=== PATIENT | male | born 1985 | race Caucasian/White ===

== ENCOUNTER 2017-12-14 17:29 | Inpatient (IN) | payer SELFPAY ==
[2017-12-14 17:46] VITALS: BP 146/71; PULSE 90; TEMP 97.8; BMI 25.0
[2017-12-14] MEDS ORDERED: ALBUTEROL SO4 2.5/IPRATROPIUM 0.5 INH SOL 3 ML VIAL.NEB. NEB ONE ×2 (18:32→19:20)
--- NOTE | 2017-12-14 18:32 | PDOC ---
History of Present Illness - General Chief Complaint: Wound Stated Complaint: ABSCESS BOIL Time Seen by Provider: 12/14/17 17:57 History Source: Patient Exam Limitations: No Limitations - History of Present Illness Initial Comments: 12/14/17 18:28 32 yo male h/o ivda, asthma, long time smoker here with abscess in left antecub near injeciton site. pt states he has had redness and swelling for several days. denies fever or chills. also c/o itching diffusely. states he was treated for scabies and lice recently, but feels like it didn't work. no f/c no other complaints. Past History - Past Medical History Allergies/Adverse Reactions: Allergies Allergy/AdvReac Type Severity Reaction Status Date / Time No Known Allergies Allergy Verified 12/14/17 17:56 Home Medications: Ambulatory Orders NK [No Known Home Medication] 12/14/17 COPD: No - Surgical History Appendectomy: Yes - Suicide/Smoking/Psychosocial Hx Smoking History: Current every day smoker Have you smoked in the past 12 months: Yes Information on smoking cessation initiated: No Drug/Substance Use Hx: Yes (IV heroin and occ cocaine) Substance Use Type: Cocaine, Heroin Review of Systems - Review of Systems Constitutional: No: Chills, Diaphoresis, Fever HEENTM: No: Eye Pain Respiratory: No: Cough, Orthopnea Cardiac (ROS): No: Chest Pain ABD/GI: No: Abdominal Distended : No: Burning, Dysuria, Discharge Integumentary: Yes: Erythema, Lesions, Rash. No: Bruising, Change in Color All Other Systems: Reviewed and Negative *Physical Exam - Vital Signs Last Vital Signs Temp Pulse Resp BP Pulse Ox 97.8 F 90 18 146/71 97 12/14/17 17:41 12/14/17 17:41 12/14/17 17:41 12/14/17 17:41 12/14/17 17:41 - Physical Exam Comments: 12/14/17 18:30 awake alert lungs with wheezing bilaterally heart rrr no mrg abd soft nt nd. ext wwp. left upper ext antecub with large 2 x 3 in indurated collection, min fluctuance. distally n/v intact. does have surrounding erythema. Procedures - Incision and Drainage I&D Site: Left: Arm Betadine cleansed: No Anesthesia: 1% Lidocaine Volume(ml): 3 Blade Size: 11 Plain Packing: No Complications: none Progress: 12/14/17 20:34 3 ml purulence pus expressed with blood tolerated well. ED Treatment Course - LABORATORY CBC & Chemistry Diagram: 12/14/17 19:00 12/14/17 19:00 Medical Decision Making - Medical Decision Making 12/14/17 18:30 differential absces. cellulitis. sepsis. plan iv abx, focused us to evalute if vascualr structure involved. pt require I &D. vanco zosyn. will retreat with premitherin cream for h/o scabies and lice. nicotine replacement cxr evalute for infection due to wheezing. 12/14/17 20:42 focused ED ultrasound , superficial indication: eval abscess linear transducer used abscess left antecub scanned in two planes. noted hypoechoic fluid collection measuring 1.6 x 2.4 cm no central vasculature impressions: left antecub abscess 1.6 x 2.4 cm I&D performed at bedside. expressed 3 ml pus and blood. tolereated well. dressing applied. case d/w admitting resident, will admit dr Steen. *DC/Admit/Observation/Transfer Diagnosis at time of Disposition: Abscess, Opiate abuse, continuous, Cellulitis - Discharge Dispostion Decision to Admit order: Yes - Referrals - Patient Instructions - Post Discharge Activity
[2017-12-14] MEDS ORDERED: VANCOMYCIN 1 GRAM (PRE-DOCKED) 1,000 MG/250 ML BAG IVPB ONE ×2 (18:33→19:20)
[2017-12-14] MEDS ORDERED: PIPERACILLIN/TAZOB 3.375 GM 3.375 GM in DEXTROSE 5%-WATER - 50 ML IVPB ONE (18:34)
[2017-12-14] MEDS ORDERED: PIPERACILLIN/TAZOB 3.375 GM 3.375 GM/50 ML BAG IVPB ONE (19:20)
[2017-12-14 19:27] LABS: BASO % 0.5 % (0-2.0); EOS % 0.6 % (0-4.5); HEMATOCRIT 38.5 % (35.4-49); HEMOGLOBIN 13.4 GM/dL (11.7-16.9); LYMPH % 16.2 % (8-40); MCH 27.3 pg (25.7-33.7); MCHC 34.7 g/dl (32.0-35.9); MEAN CELL VOLUME 78.7 fl (80-96); MONO % 8.4 % (3.8-10.2); NEUT % 74.3 % (42.8-82.8); PLATELET COUNT 225 K/MM3 (134-434); RBC 4.89 M/mm3 (4.00-5.60); RDW 13.1 % (11.9-15.9); WHITE BLOOD COUNT 11.2 K/mm3 (4.0-10.0)
[2017-12-14 19:28] LABS: VENOUS PC02 49.9 mmHg (38-52); VENOUS PH 7.38 (7.32-7.42)
[2017-12-14 19:40] LABS: INR 1.02 (0.83-1.09)
[2017-12-14 19:42] LABS: ACTIVATED PTT 33.6 SECONDS (25.2-36.5)
[2017-12-14 20:04] LABS: ALBUMIN 3.8 g/dl (3.4-5.0); ALK PHOS 86 U/L (45-117); ANION GAP 9 MMOL/L (8-16); BILIRUBIN,TOTAL 0.5 mg/dL (0.2-1); BLOOD UREA NITROGEN 18 mg/dL (7-18); CALCIUM 8.2 mg/dL (8.5-10.1); CHLORIDE 102 mmol/L (98-107); CO2 28 mmol/L (21-32); CREATININE 0.8 mg/dL (0.55-1.3); GLUCOSE,RANDOM 121 mg/dL (74-106); POTASSIUM 3.7 mmol/L (3.5-5.1); SGOT/AST 16 U/L (15-37); SGPT/ALT 18 U/L (13-61); SODIUM 140 mmol/L (136-145); TOT PROT 6.8 g/dl (6.4-8.2)
[2017-12-14 20:53] LABS: URINE APPEARANCE CLEAR; URINE BILIRUBIN NEGATIVE (<2.0 mg/dL); URINE COLOR YELLOW; URINE GLUCOSE (UA) NEGATIVE (NEGATIVE); URINE KETONE NEGATIVE (NEGATIVE); URINE LEUK ESTERASE NEGATIVE (NEGATIVE); URINE NITRITE NEGATIVE (NEGATIVE); URINE PROTEIN NEGATIVE (NEGATIVE); URINE UROBILINOGEN 4.0 E.U/dl mg/dL (0.2-1.0)
--- NOTE | 2017-12-14 21:32 | HP ---
CHIEF COMPLAINT: L Arm Abscess PCP: None HISTORY OF PRESENT ILLNESS: 32 y/o M with PMHx of Asthma and Polysubtance abuse (Injection Heroin, Cocaine) presents with L Arm Abscess. Patient says he has had multiple abscess in the past. Usually he asks around for antibiotics and "hopes it works." The abscess this time however continued to grow and was accompanied by Erythema and 7/10, Shooting pain down to his wrist and up to his mid-humerus. Denies any active diascharge. I interviewed the patient after the bedside I&D was performed. Patient endorses diarrhea and constipation however he says this is chronic as he has previously been diagnosed with IBS. Denies any accompanying fevers, chills, chest pain, SOB. Patient admits to injection use of Heroin and cocaine. His most recent use of heroin was approx. 1pm this past afternoon. He refuses to quantify the amount or how often he uses however he mentions having used for the >10 years. He says he only injects, and does not snort or smoke. Additionally he mentions the last time he encountered a physician was during his long-term stay in 2014. Finally, he mentions he has been in and out of shelters and has encountered a scabies and bed bug infestation. Patient became agitated, refused to answer anymore questions and requested to be interviewed later. ER course was notable for: (1) Bedside I&D (2) Christine Cabrera (3) Recent Travel: Denies PAST MEDICAL HISTORY: Asthma Polysubstance Abuse (Injection of Heroin, Cocaine) PAST SURGICAL HISTORY: R Wrist fracture repair Social History: Smokinppd x 20 years Alcohol: Denies Drugs: Heroin and cocaine Family History: Allergies No Known Allergies Allergy (Verified 12/14/17 17:56) HOME MEDICATIONS: Home Medications Medication Instructions Recorded NK [No Known Home Medication] 12/14/17 REVIEW OF SYSTEMS As per HPI PHYSICAL EXAMINATION Vital Signs - 24 hr 12/14/17 12/14/17 17:41 20:42 Temperature 97.8 F Pulse Rate 90 Respiratory 18 Rate Blood Pressure 146/71 O2 Sat by Pulse 97 97 Oximetry (%) GENERAL: A&Ox3, NAD however patient kept closing his eyes and becoming lethargic LUNGS: Breath sounds equal, clear to auscultation bilaterally. No wheezes. HEART: Regular rate and rhythm, normal S1 and S2 without murmur. ABDOMEN: Soft, nontender, not distended, normoactive bowel sounds, no guarding UPPER EXTREMITIES: Left Arm antecubital fossa wound site wrapped in fresh bandage. 2+ radial pulses. LOWER EXTREMITIES: No peripheral edema. SKIN: Warm, dry, with multiple healing, scabbed over lesions all extremities. Slightly erythematous rash over lower face and jaw without pustules. Laboratory Results - last 24 hr 12/14/17 12/14/17 12/14/17 19:00 19:00 19:00 WBC 11.2 H RBC 4.89 Hgb 13.4 Hct 38.5 MCV 78.7 L MCH 27.3 MCHC 34.7 RDW 13.1 Plt Count 225 MPV 9.0 Absolute Neuts (auto) 8.3 H Neutrophils % 74.3 Lymphocytes % 16.2 Monocytes % 8.4 Eosinophils % 0.6 Basophils % 0.5 Nucleated RBC % 0 PT with INR 12.00 INR 1.02 PTT (Actin FS) 33.6 VBG pH 7.38 POC VBG pCO2 49.9 POC VBG pO2 60.0 H Mixed VBG HCO3 28.9 H Sodium Potassium Chloride Carbon Dioxide Anion Gap BUN Creatinine Creat Clearance w eGFR Random Glucose Lactic Acid Calcium Total Bilirubin AST ALT Alkaline Phosphatase Total Protein Albumin Urine Color Urine Appearance Urine pH Ur Specific [place] Urine Protein Urine Glucose (UA) Urine Ketones Urine Blood Urine Nitrite Urine Bilirubin Urine Urobilinogen Ur Leukocyte Esterase 12/14/17 12/14/17 12/14/17 19:00 19:08 20:38 WBC RBC Hgb Hct MCV MCH MCHC RDW Plt Count MPV Absolute Neuts (auto) Neutrophils % Lymphocytes % Monocytes % Eosinophils % Basophils % Nucleated RBC % PT with INR INR PTT (Actin FS) VBG pH POC VBG pCO2 POC VBG pO2 Mixed VBG HCO3 Sodium 140 Potassium 3.7 Chloride 102 Carbon Dioxide 28 Anion Gap 9 BUN 18 Creatinine 0.8 Creat Clearance w eGFR > 60 Random Glucose 121 H Lactic Acid 1.2 Calcium 8.2 L Total Bilirubin 0.5 AST 16 ALT 18 Alkaline Phosphatase 86 Total Protein 6.8 Albumin 3.8 Urine Color Yellow Urine Appearance Clear Urine pH 6.0 Ur Specific [place] 1.029 Urine Protein Negative Urine Glucose (UA) Negative Urine Ketones Negative Urine Blood Negative Urine Nitrite Negative Urine Bilirubin Negative Urine Urobilinogen 4.0 e.u/dl Ur Leukocyte Esterase Negative ASSESSMENT/PLAN: 32 y/o M with PMHx of Asthma and Polysubtance abuse (Injection Heroin, Cocaine) presents with L Arm Abscess. #Left Arm Abscess -Likely due to IVDA -Bedside I&D preformed in ED -Started on IV Vanco, Zosyn (12/14) -Patient Left AMA before further evaluation or treatment could have been administered Visit type - Emergency Visit Emergency Visit: Yes Care time: The patient presented to the Emergency Department on the above date and was hospitalized for further evaluation of their emergent condition. - New Patient This patient is new to me today: Yes Date on this admission: 12/14/17 - Critical Care Critical Care patient: No
--- NOTE | 2017-12-15 01:59 | PN ---
Teaching Attending Note Name of Resident: Tamie Acharya ATTENDING PHYSICIAN STATEMENT I saw and evaluated the patient. I reviewed the resident's note and discussed the case with the resident. I agree with the resident's findings and plan as documented. SUBJECTIVE: OBJECTIVE: ASSESSMENT AND PLAN: patient AMA before i got to see and examine him
--- NOTE | 2017-12-16 15:33 | PDOC ---
Patient Follow-up (Call Back) - Post ED Follow - Up Condition at time of discharge: Unchanged/Unknown Disposition at time of original discharge: AGAINST MEDICAL ADVICE Reason for Call Back: Abnwl. Microbiology (MRSA wound) - Disposition Rx Needed: No (pt dc on clindamycin ) Additional Instructions/Notes: attempted to reach pt on the phone numbers given no voice mail no answer attempted to reach girlfriend Minna next of kin, no answer.
== END 2017-12-14 21:33 | disposition left against medical advice (07) | DRG 364 ==
LOC: JER 17:29 → JERBED 20:12
PROVIDERS: ADMIT Internal Medicine; ATTEND Internal Medicine
PROC: 0J9F0ZZ Drainage of Left Upper Arm Subcutaneous Tissue and Fascia, Open Approach (ICD-10-PCS; principal; 2017-12-14)
DX: L02.414 Cutaneous abscess of left upper limb (principal); F14.10 Cocaine abuse, uncomplicated; F11.10 Opioid abuse, uncomplicated; F17.210 Nicotine dependence, cigarettes, uncomplicated; J45.909 Unspecified asthma, uncomplicated
CPT/HCPCS: 36415; 71045-TC-FY; 80053; 81003; 82803; 83605; 85025; 85610; 85730; 87040; 87070; 87086; 87186; 87205; 99285-25

== ENCOUNTER 2018-07-27 13:22 | Emergency (ER) | payer OTHER | END 2018-07-27 14:56 | disposition left against medical advice (07) | LOC: JER 13:22 ==

== ENCOUNTER 2019-01-08 19:37 | Inpatient (IN) | payer OTHER ==
[2019-01-08 20:26] VITALS: BMI 30.4
--- NOTE | 2019-01-08 21:11 | HP ---
COWS - Scale Resting Pulse: 1= [place] 81-100 Sweatin=Flushed/Facial Moisture Restless Observation: 1= Difficult to Sit Still Pupil Size: 1= Pupils >than Normal Bone or Joint Aches: 4=Acute Joint/Muscle Pain Runny Nose/ Eye Tearin= Nasal Congestion GI Upset > 30mins: 1= Stomach Cramp Tremor Observation: 4= Gross Tremor/Twitching Yawning Observation: 0= None Anxiety or Irritability: 2=Irritable/Anxious Goose Flesh Skin: 3=Piloerection COWS Score: 20 CIWA Score Nausea/Vomitin Muscle Tremors: 4-Moderate,w/Arms Extend Anxiety: 4-Mod. Anxious/Guarded Agitation: 4-Moderately Restless Paroxysmal Sweats: 2 Orientation: 2-Disoriented Date<2 days Tacttile Disturbances: 0-None Auditory Disturbances: 0-None Visual Disturbances: 0-None Headache: 0-None Present CIWA-Ar Total Score: 19 - Admission Criteria [facility]ASAS Guidelines: Admission for Medically Managed Detox: Requires at least one of the followin. CIWA greater than 12 2. Seizures within the past 24 hours 3. Delirium tremens within the past 24 hours 4. Hallucinations within the past 24 hours 5. Acute intervention needed for co occurring medical disorder 6. Acute intervention needed for co occurring psychiatric disorder 7. Severe withdrawal that cannot be handled at a lower level of care (continued vomiting, continued diarrhea, abnormal vital signs) requiring intravenous medication and/or fluids 8. Admitting History and Physical - Smoking History Smoking history: Smoker current status UNK Have you smoked in the past 12 months: No - Alcohol/Substance Use Hx Alcohol Use: No Admission ROS [facility] Chief Complaint: Heroin and Xanax withdrawal symptoms Allergies/Adverse Reactions: Allergies Allergy/AdvReac Type Severity Reaction Status Date / Time No Known Allergies Allergy Verified 01/08/19 20:19 History of Present Illness: 33 years old male with a long history of heroin and Xanax dependence is seeking admission to detox. [facility]. He reports history of Asthma, hypertension, seizures and depression. He reports blackouts and denies suicidal ideation, respiratory distress, SOB and aura at this time. Patient reports that he is not on active medication at this time and is not able to remember any information about his PCP at this time. He reportys that he is an intravenous drug user and had overdosed before though he could not remember any information about his overdose at this time. - Ebola screening Have you traveled outside of the country in the last 21 days: No (N) Have you had contact with anyone from an Ebola affected area: No Do you have a fever: No - Review of Systems Constitutional: Chills, Malaise, Night Sweats EENT: reports: Nose Congestion Respiratory: reports: No Symptoms reported Cardiac: reports: No Symptoms Reported GI: reports: Poor Appetite, Poor Fluid Intake, Abdominal cramping : reports: No Symptoms Reported Musculoskeletal: reports: Back Pain Integumentary: reports: Bruising (both hands), Dryness, Flushing Neuro: reports: Tremors Endocrine: reports: No Symptoms Reported Hematology: reports: No Symptoms Reported Psychiatric: reports: Anxious, Depressed Other Systems: Reviewed and Negative Patient History - Patient Medical History Hx Anemia: No Hx Asthma: Yes (Not on medication) Hx Chronic Obstructive Pulmonary Disease (COPD): No Hx Cancer: No Hx Cardiac Disorders: No Hx Congestive Heart Failure: No Hx Hypertension: Yes (Not on medication) Hx Hypercholesterolemia: No Hx Pacemaker: No Hx Seizures: Yes (Not on medication) Hx Dementia: No Hx Diabetes: No Hx Gastrointestinal Disorders: No Hx Liver Disease: No Hx Genitourinary Disorders: No Hx Sexually Transmitted Disorders: No Hx Renal Disease (ESRD): No Hx Thyroid Disease: No Hx Human Immunodeficiency Virus (HIV): No (Negative) Hx Hepatitis C: No Hx Depression: Yes (Not on medication) Hx Suicide Attempt: Yes (Denies suicidal ideation at this time) Hx Bipolar Disorder: No Hx Schizophrenia: No - Patient Surgical History Past Surgical History: Yes Hx Neurologic Surgery: No Hx Cataract Extraction: No Hx Cardiac Surgery: No Hx Lung Surgery: No Hx Abdominal Surgery: No Hx Appendectomy: Yes Hx Cholecystectomy: No Hx Genitourinary Surgery: No Hx Orthopedic Surgery: No Anesthesia Reaction: No - PPD History Previous Implant?: No Documented Results: Negative w/o proof Implanted On Prior R Admission?: No PPD to be Administered?: Yes - Reproductive History Patient is a Female of Child Bearing Age (11 -55 yrs old): No (male) - Smoking Cessation Smoking history: Smoker current status UNK Have you smoked in the past 12 months: No Hx Chewing Tobacco Use: No Initiated information on smoking cessation: No - Substance & Tx. History Hx Alcohol Use: No Hx Substance Use: Yes Substance Use Type: Cocaine, Heroin, Marijuana, Opiates Hx Substance Use Treatment: Yes - Substances abused Heroin Substance route: Injection Frequency: Daily Amount used: 10-15 bags Age of first use: 25 Date of last use: 01/08/19 Alprazolam (Xanax) Substance route: Oral Frequency: Daily Amount used: 4mg Age of first use: 26 Date of last use: 01/08/19 Crack Substance route: Smoking Frequency: 3-6 times per week Amount used: 4 bags Age of first use: 14 Date of last use: 01/07/19 Admission Physical Exam [facility] - Vital Signs Vital Signs: Vital Signs - 24 hr 01/08/19 20:14 Temperature 97.8 F Pulse Rate 84 Respiratory 20 Rate Blood Pressure 138/84 - Physical General Appearance: Yes: Moderate Distress, Tremorous, Irritable, Anxious HEENTM: Yes: Nasal Congestion Respiratory: Yes: Lungs Clear, Normal Breath Sounds, No Respiratory Distress Neck: Yes: Supple Breast: Yes: Breast Exam Deferred Cardiology: Yes: Within Normal Limits Abdominal: Yes: Normal Bowel Sounds Genitourinary: Yes: Within Normal Limits Back: Yes: Normal Inspection Musculoskeletal: Yes: Back pain Extremities: Yes: Tremors Neurological: Yes: Within Normal Limits, Alert, Normal Mood/Affect Integumentary: Yes: Warm Lymphatic: Yes: Within Normal Limits - Diagnostic (1) Opioid dependence with withdrawal Current Visit: Yes Status: Acute (2) Cannabis abuse with intoxication, uncomplicated Current Visit: Yes Status: Acute (3) Sedative, hypnotic or anxiolytic abuse with intoxication, uncomplicated Current Visit: Yes Status: Acute (4) Cocaine abuse with intoxication, uncomplicated Current Visit: Yes Status: Acute (5) Hypertension Current Visit: Yes Status: Chronic Qualifiers: Hypertension type: unspecified Qualified Code(s): I10 - Essential (primary ) hypertension (6) Seizure Current Visit: Yes Status: Chronic (7) Asthma Current Visit: Yes Status: Chronic Qualifiers: Asthma complication type: unspecified (8) Depression Current Visit: Yes Status: Chronic Cleared for Admission [facility] - Detox or Rehab [facility] Level of Care: Medically Managed Detox Regimen/Protocol: Methadone/Valium Claeared for Rehab Admission: No Breathalyzer - Breathalyzer Breathalyzer: 0 Urine Drug Screen - Test Device Lot number: [id number] Expiration date: 09/10/20 - Control Is test valid?: Yes - Results Drug screen NEGATIVE: No Urine drug screen results: THC-Marijuana, PERLA-Cocaine, AMP-Amphetamines, FEN- Fentanyl, MOP-Opiates, BZO-Benzodiazepines Inpatient Rehab Admission - Rehab Decision to Admit Inpatient rehab admission?: No
[2019-01-08] MEDS ORDERED: MAGNESIUM CITRATE 300 ML BOTTLE PO PRN (21:24)
[2019-01-08] MEDS ORDERED: IBUPROFEN 400 MG TABLET (FP) PO PRN (21:24)
[2019-01-08] MEDS ORDERED: MELATONIN 5 MG TABLETS PO PRN (21:24)
[2019-01-08] MEDS ORDERED: MAGNESIUM HYDROX 2400MG/30ML ORAL SUSPENSION 30 ML CUP PO PRN (21:24)
[2019-01-08] MEDS ORDERED: ACETAMINOPHEN 325 MG TABLET (FP) PO PRN ×2 (21:24)
[2019-01-08] MEDS ORDERED: BISMUTH SUBSALICYLATE 524 MG/30 ML UD PO PRN (21:24)
[2019-01-08] MEDS ORDERED: MENTHOL/PHENOL 1 EACH UD MM PRN (21:24)
[2019-01-08] MEDS ORDERED: MAG HYDROX/AL HYDROX/SIMETH 30 ML UNIT-DOSE CUP PO PRN (21:24)
[2019-01-08] MEDS ORDERED: METHADONE HCL 10 MG TABLET (FOR DETOX USE ONLY) PO ONE (21:30)
[2019-01-08] MEDS ORDERED: cloNIDine HCL 0.1 MG TABLET PO PRN (21:30)
[2019-01-08] MEDS: diazePAM 5 MG TABLET PO SCH (22:32)
[2019-01-08] MEDS: THIAMINE HCL 100 MG TABLET (FP) PO SCH (22:47)
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
[2019-01-09] MEDS: diazePAM 5 MG TABLET PO SCH ×3 (07:00→22:31)
[2019-01-09] MEDS ORDERED: METHADONE HCL 5 MG TABLET (FOR DETOX USE ONLY) ONE (09:26)
[2019-01-09] MEDS ORDERED: METHADONE HCL 10 MG TABLET (FOR DETOX USE ONLY) ONE (09:27)
[2019-01-09] MEDS ORDERED: METHADONE (DETOX) 20 MG, METHADONE (DETOX) 5 MG PO ONE (10:00)
[2019-01-09 10:03] LABS: ALBUMIN 3.3 g/dl (3.4-5.0); BILIRUBIN,TOTAL 0.3 mg/dL (0.2-1); BLOOD UREA NITROGEN 15.1 mg/dL (7-18); CALCIUM 8.6 mg/dL (8.5-10.1); CREATININE 0.9 mg/dL (0.55-1.3); POTASSIUM 3.9 mmol/L (3.5-5.1); TOT PROT 5.8 g/dl (6.4-8.2)
[2019-01-09 10:05] LABS: HEMATOCRIT 37.3 % (35.4-49); HEMOGLOBIN 12.5 GM/dL (11.7-16.9); MCH 26.2 pg (25.7-33.7); MCHC 33.6 g/dl (32.0-35.9); PLATELET COUNT 192 K/MM3 (134-434); RBC 4.78 M/mm3 (4.00-5.60); RDW 14.7 % (11.9-15.9); WHITE BLOOD COUNT 6.5 K/mm3 (4.0-10.0)
[2019-01-09] MEDS: PRENATAL VITAMINS W/ FOLIC ACID TABLET (FP) PO SCH (10:23)
[2019-01-09] MEDS: diazePAM 5 MG TABLET PO PRN (10:24)
--- NOTE | 2019-01-09 10:45 | PN ---
[facility] CIWA - CIWA Score Nausea/Vomitin-No Nausea/No Vomiting Muscle Tremors: 3 Anxiety: 3 Agitation: 3 Paroxysmal Sweats: 2 Orientation: 0-Oriented Tacttile Disturbances: 0-None Auditory Disturbances: 0-None Visual Disturbances: 0-None Headache: 0-None Present CIWA-Ar Total Score: 11 S COWS - Scale Resting Pulse: 0= [place] 80 or Below Sweatin= Chills/Flushing Restless Observation: 1= Difficult to Sit Still Pupil Size: 0= Normal to Room Light Bone or Joint Aches: 2= Severe Diffuse Aches Runny Nose/ Eye Tearin= Nasal Congestion GI Upset > 30mins: 0= None Tremor Observation of Outstretched Hands: 1= Tremor [place], Not Seen Yawning Observation: 2= >3x During Session Anxiety or Irritability: 2=Irritable/Anxious Goose Flesh Skin: 0=Smooth Skin COWS Score: 10 [facility] Progress Note (SOAP) Subjective: shakes sweats headaches body aches chills Objective: 01/09/19 10:45 Vital Signs Temperature 98.4 F 01/09/19 09:50 Pulse Rate 68 01/09/19 09:50 Respiratory Rate 18 01/09/19 09:50 Blood Pressure 121/56 L 01/09/19 09:50 O2 Sat by Pulse Oximetry (%) Laboratory Tests 01/09/19 01/09/19 01/09/19 06:50 06:50 06:50 WBC 6.5 RBC 4.78 Hgb 12.5 Hct 37.3 MCV 78.0 L MCH 26.2 MCHC 33.6 RDW 14.7 D Plt Count 192 MPV 9.0 Sodium 140 Potassium 3.9 Chloride 105 Carbon Dioxide 30 Anion Gap 5 L BUN 15.1 Creatinine 0.9 Est GFR (CKD-EPI)AfAm 128.70 Est GFR (CKD-EPI)NonAf 111.04 Random Glucose 87 Calcium 8.6 Total Bilirubin 0.3 AST 26 ALT 25 Alkaline Phosphatase 72 Total Protein 5.8 L Albumin 3.3 L RPR Titer Nonreactive labs noted aaox3 ambulating no acute distress Assessment: 01/09/19 10:46 withdrawals Plan: continue detox increase fluids tylenol/motrin prn
--- NOTE | 2019-01-09 14:07 | EKG ---
Test Reason : Blood Pressure : / mmHG Vent. Rate : 078 BPM Atrial Rate : 078 BPM P-R Int : 156 ms QRS Dur : 098 ms QT Int : 420 ms P-R-T Axes : 060 021 033 degrees QTc Int : 478 ms NORMAL SINUS RHYTHM NORMAL ECG NO PREVIOUS ECGS AVAILABLE Confirmed by LIDIA LERMA MD ([id number]) on 01/09/2019 2:07:23 PM Referred By: Confirmed By:LIDIA LERMA MD
[2019-01-09] MEDS: THIAMINE HCL 100 MG TABLET (FP) PO SCH (22:31)
[2019-01-10] MEDS: diazePAM 5 MG TABLET PO SCH ×2 (05:15→17:36)
[2019-01-10] MEDS ORDERED: METHADONE HCL 10 MG TABLET (FOR DETOX USE ONLY) PO ONE (10:00)
[2019-01-10] MEDS: PRENATAL VITAMINS W/ FOLIC ACID TABLET (FP) PO SCH (10:48)
--- NOTE | 2019-01-10 12:58 | PN ---
S CIWA - CIWA Score Nausea/Vomitin-Mild Nausea/No Vomiting Muscle Tremors: 2 Anxiety: 1-Mildly Anxious Agitation: 1-Slight > Activity Paroxysmal Sweats: No Perspiration Orientation: 0-Oriented Tacttile Disturbances: 0-None Auditory Disturbances: 0-None Visual Disturbances: 0-None Headache: 0-None Present CIWA-Ar Total Score: 5 S COWS - Scale Resting Pulse: 1= [place] 81-100 Sweatin= Chills/Flushing Restless Observation: 1= Difficult to Sit Still Pupil Size: 1= Pupils >than Normal Bone or Joint Aches: 1= Mild Discomfort Runny Nose/ Eye Tearin= Nasal Congestion GI Upset > 30mins: 0= None Tremor Observation of Outstretched Hands: 0= None Yawning Observation: 0= None Anxiety or Irritability: 1=Feels Anxious/Irritable Goose Flesh Skin: 0=Smooth Skin COWS Score: 7 S Progress Note (SOAP) Subjective: pt here for opioid and heroin detox O: Vital Signs - 24 hr 01/09/19 01/09/19 01/09/19 13:39 16:41 20:37 Temperature 98.2 F 97.9 F 97.9 F Pulse Rate 65 58 L 62 Respiratory 18 18 18 Rate Blood Pressure 120/51 L 121/63 121/72 01/10/19 01/10/19 01/10/19 00:30 03:30 06:00 Temperature 97.9 F Pulse Rate 62 Respiratory 18 18 18 Rate Blood Pressure 129/72 01/10/19 09:46 Temperature 98.2 F Pulse Rate 76 Respiratory 16 Rate Blood Pressure 133/73 Laboratory Tests 01/09/19 01/09/19 01/09/19 06:50 06:50 06:50 WBC 6.5 RBC 4.78 Hgb 12.5 Hct 37.3 MCV 78.0 L MCH 26.2 MCHC 33.6 RDW 14.7 D Plt Count 192 MPV 9.0 Sodium 140 Potassium 3.9 Chloride 105 Carbon Dioxide 30 Anion Gap 5 L BUN 15.1 Creatinine 0.9 Est GFR (CKD-EPI)AfAm 128.70 Est GFR (CKD-EPI)NonAf 111.04 Random Glucose 87 Calcium 8.6 Total Bilirubin 0.3 AST 26 ALT 25 Alkaline Phosphatase 72 Total Protein 5.8 L Albumin 3.3 L RPR Titer Nonreactive a/p: Detox protocols: continue methadone and valium detox protocols labs and VS ess WNL
[2019-01-10] MEDS: diazePAM 5 MG TABLET PO PRN (14:50)
[2019-01-10] MEDS: METHOCARBAMOL 500 MG TABLET PO PRN (20:30)
[2019-01-10] MEDS: hydrOXYzine PAMOATE 25 MG CAPSULE (FP) PO PRN (20:30)
[2019-01-11] MEDS: THIAMINE HCL 100 MG TABLET (FP) PO SCH ×2 (00:06→22:22)
[2019-01-11] MEDS ORDERED: diazePAM 5 MG TABLET PO ONE (06:00)
[2019-01-11] MEDS ORDERED: METHADONE HCL 10 MG TABLET (FOR DETOX USE ONLY) ONE (09:52)
[2019-01-11] MEDS ORDERED: METHADONE HCL 5 MG TABLET (FOR DETOX USE ONLY) ONE (09:52)
[2019-01-11] MEDS ORDERED: METHADONE (DETOX) 10 MG, METHADONE (DETOX) 5 MG PO ONE (10:00)
[2019-01-11] MEDS: PRENATAL VITAMINS W/ FOLIC ACID TABLET (FP) PO SCH (10:31)
[2019-01-11] MEDS: diazePAM 5 MG TABLET PO PRN ×2 (10:34→17:18)
--- NOTE | 2019-01-11 12:10 | PN ---
[facility] CIWA - CIWA Score Nausea/Vomitin-No Nausea/No Vomiting Muscle Tremors: 2 Anxiety: 1-Mildly Anxious Agitation: 2 Paroxysmal Sweats: No Perspiration Orientation: 0-Oriented Tacttile Disturbances: 0-None Auditory Disturbances: 0-None Visual Disturbances: 0-None Headache: 0-None Present CIWA-Ar Total Score: 5 BHS COWS - Scale Resting Pulse: 0= [place] 80 or Below Sweatin= Chills/Flushing Restless Observation: 1= Difficult to Sit Still Pupil Size: 0= Normal to Room Light Bone or Joint Aches: 0= None Runny Nose/ Eye Tearin= None GI Upset > 30mins: 0= None Tremor Observation of Outstretched Hands: 0= None Yawning Observation: 1= 1-2x During Session Anxiety or Irritability: 1=Feels Anxious/Irritable Goose Flesh Skin: 0=Smooth Skin COWS Score: 4 S Progress Note (SOAP) Subjective: sweats chills body aches poor appetite Objective: 01/11/19 12:09 Vital Signs Temperature 98.4 F 01/11/19 09:31 Pulse Rate 57 L 01/11/19 09:31 Respiratory Rate 18 01/11/19 09:31 Blood Pressure 119/71 01/11/19 09:31 O2 Sat by Pulse Oximetry (%) Laboratory Tests 01/09/19 01/09/19 01/09/19 06:50 06:50 06:50 WBC 6.5 RBC 4.78 Hgb 12.5 Hct 37.3 MCV 78.0 L MCH 26.2 MCHC 33.6 RDW 14.7 D Plt Count 192 MPV 9.0 Sodium 140 Potassium 3.9 Chloride 105 Carbon Dioxide 30 Anion Gap 5 L BUN 15.1 Creatinine 0.9 Est GFR (CKD-EPI)AfAm 128.70 Est GFR (CKD-EPI)NonAf 111.04 Random Glucose 87 Calcium 8.6 Total Bilirubin 0.3 AST 26 ALT 25 Alkaline Phosphatase 72 Total Protein 5.8 L Albumin 3.3 L RPR Titer Nonreactive labs noted aaox3 ambulating no acute distress Assessment: 01/11/19 12:10 withdrawals Plan: continue detox increase fluids ensure bid
[2019-01-11] MEDS: hydrOXYzine PAMOATE 25 MG CAPSULE (FP) PO PRN (19:42)
[2019-01-11] MEDS: METHOCARBAMOL 500 MG TABLET PO PRN (19:43)
[2019-01-12 05:56] VITALS: PULSE 58
[2019-01-12 09:53] VITALS: BP 104/52; TEMP 97.5
[2019-01-12] MEDS ORDERED: METHADONE HCL 10 MG TABLET (FOR DETOX USE ONLY) PO ONE (10:00)
[2019-01-12] MEDS: PRENATAL VITAMINS W/ FOLIC ACID TABLET (FP) PO SCH (10:30)
[2019-01-12] MEDS: METHOCARBAMOL 500 MG TABLET PO PRN (10:32)
--- NOTE | 2019-01-12 11:07 | PN ---
[facility] CIWA - CIWA Score Nausea/Vomitin-Mild Nausea/No Vomiting Muscle Tremors: 1-None Visible, but [place] Anxiety: 2 Agitation: 2 Paroxysmal Sweats: No Perspiration Orientation: 0-Oriented Tacttile Disturbances: 1-Very Mild Itch/Numbness Auditory Disturbances: 0-None Visual Disturbances: 0-None Headache: 1-Very Mild CIWA-Ar Total Score: 8 BHS COWS - Scale Resting Pulse: 0= [place] 80 or Below Sweatin= No chills or Flushing Restless Observation: 1= Difficult to Sit Still Pupil Size: 1= Pupils >than Normal Bone or Joint Aches: 1= Mild Discomfort Runny Nose/ Eye Tearin= Nasal Congestion GI Upset > 30mins: 1= Stomach Cramp Tremor Observation of Outstretched Hands: 1= Tremor [place], Not Seen Yawning Observation: 1= 1-2x During Session Anxiety or Irritability: 2=Irritable/Anxious Goose Flesh Skin: 0=Smooth Skin COWS Score: 9 [facility] Progress Note (SOAP) Subjective: alert,irritable,anxious,interrupted sleep,pain in the body Objective: 01/12/19 11:07 Vital Signs Temperature 97.5 F L 01/12/19 09:52 Pulse Rate 58 L 01/12/19 09:52 Respiratory Rate 18 01/12/19 09:52 Blood Pressure 104/52 L 01/12/19 09:52 O2 Sat by Pulse Oximetry (%) Assessment: 01/12/19 11:07 withdrawal symptom Plan: continue detox methadone and valium regimen,discharge in am
--- NOTE | 2019-01-12 12:57 | DS ---
[facility] Detox Discharge Summary Admission Date: 01/08/19 Discharge Date: 01/12/19 - History Present History: Cannabis Dependence, Cocaine Dependence, Opioid Dependence, Sedative Dependence - Physical Exam Results Vital Signs: Vital Signs Temperature 97.5 F L 01/12/19 09:52 Pulse Rate 58 L 01/12/19 09:52 Respiratory Rate 18 01/12/19 09:52 Blood Pressure 104/52 L 01/12/19 09:52 O2 Sat by Pulse Oximetry (%) - Treatment Hospital Course: Detox Protocol Followed, Detoxed Safely, Responded well, Discharged Condition Good, Rehab Referral Accepted - Medication Discharge Medications: Ambulatory Orders Albuterol Sulfate Inhaler - [Ventolin HFA Inhaler -] 1 - 2 inh PO Q4H PRN #1 inhaler 07/27/18 Diphenhydramine HCl [Benadryl -] 25 mg PO BID PRN #10 capsule 07/27/18 - Diagnosis (1) Cannabis abuse with intoxication, uncomplicated Current Visit: Yes Status: Chronic (2) Cocaine dependence Current Visit: Yes Status: Chronic Qualifiers: Substance use status: uncomplicated Qualified Code(s): F14.20 - Cocaine dependence, uncomplicated (3) Opioid dependence with withdrawal Current Visit: Yes Status: Chronic (4) Sedative, hypnotic or anxiolytic abuse with intoxication, uncomplicated Current Visit: Yes Status: Chronic (5) Asthma Current Visit: Yes Status: Chronic Qualifiers: Asthma severity: mild Asthma complication type: uncomplicated (6) Depression Current Visit: Yes Status: Chronic (7) Hypertension Current Visit: Yes Status: Chronic Qualifiers: Hypertension type: unspecified Qualified Code(s): I10 - Essential (primary ) hypertension (8) Seizure Current Visit: Yes Status: Chronic - AMA Did Patient Leave Against Medical Advice: No
[2019-01-13] MEDS ORDERED: METHADONE HCL 5 MG TABLET (FOR DETOX USE ONLY) PO ONE (06:00)
== END 2019-01-12 13:13 | disposition home or self-care (01) | DRG 773 ==
LOC: YASAS 19:37 → Y6N 21:17
PROVIDERS: ADMIT Allergy & Immunology; ATTEND Allergy & Immunology
PROC: HZ2ZZZZ Detoxification Services for Substance Abuse Treatment (ICD-10-PCS; principal; 2019-01-08)
DX: F11.23 Opioid dependence with withdrawal (principal); F14.20 Cocaine dependence, uncomplicated; F13.20 Sedative, hypnotic or anxiolytic dependence, uncomplicated; F12.20 Cannabis dependence, uncomplicated; F32.9 Major depressive disorder, single episode, unspecified; I10 Essential (primary) hypertension; J45.20 Mild intermittent asthma, uncomplicated; G40.909 Epilepsy, unspecified, not intractable, without status epilepticus
CPT/HCPCS: 36415; 80053; 85027; 86593; 93005; 93010; J0735

== ENCOUNTER 2019-02-27 09:26 | Inpatient (IN) | payer OTHER ==
[2019-02-27 09:45] VITALS: BMI 29.2
--- NOTE | 2019-02-27 11:15 | HP ---
COWS - Scale Resting Pulse: 0= [place] 80 or Below Sweatin= No chills or Flushing Restless Observation: 0= Sits Still Pupil Size: 0= Normal to Room Light Bone or Joint Aches: 2= Severe Diffuse Aches Runny Nose/ Eye Tearin= Nasal Congestion GI Upset > 30mins: 2= Nausea/Diarrhea Tremor Observation: 0= None Yawning Observation: 0= None Anxiety or Irritability: 0= None Goose Flesh Skin: 0=Smooth Skin COWS Score: 5 CIWA Score Nausea/Vomitin-Mild Nausea/No Vomiting Muscle Tremors: None Anxiety: 0-No Anxiety, at Ease Agitation: 0-Normal Activity Paroxysmal Sweats: No Perspiration Orientation: 2-Disoriented Date<2 days Tacttile Disturbances: 0-None Auditory Disturbances: 0-None Visual Disturbances: 2-Mild Sensitivity Headache: 3-Moderate CIWA-Ar Total Score: 8 - Admission Criteria OASAS Guidelines: Admission for Medically Managed Detox: Requires at least one of the followin. CIWA greater than 12 2. Seizures within the past 24 hours 3. Delirium tremens within the past 24 hours 4. Hallucinations within the past 24 hours 5. Acute intervention needed for co occurring medical disorder 6. Acute intervention needed for co occurring psychiatric disorder 7. Severe withdrawal that cannot be handled at a lower level of care (continued vomiting, continued diarrhea, abnormal vital signs) requiring intravenous medication and/or fluids 8. Admitting History and Physical - Smoking History Smoking history: Smoker current status UNK Have you smoked in the past 12 months: No Aproximately how many cigarettes per day: 20 - Alcohol/Substance Use Hx Alcohol Use: No Admission [facility] Allergies/Adverse Reactions: Allergies Allergy/AdvReac Type Severity Reaction Status Date / Time No Known Allergies Allergy Verified 02/27/19 09:40 History of Present Illness: 33 y.o.male here for opiate and benzo use, reports 1/2 bundle-1 bundle /day x 10 years IV , latest use yesterday 6 bags IV hands . cocaine 1/2 gr x 10 years IV benzo : every other day klonopin or xanax " when I have the funds for it " x 1-2 years tobacco : 1 ppd cannabis : occasional PMHx : Asthma since childhood , hypertension x 3 yrs, seizure w/d cocaine OD , depression denies SI / [place] PSHX : right wrist 2004 , tonsillectomy Exam Limitations: Clinical Condition, Intoxication - Ebola screening Have you traveled outside of the country in the last 21 days: No Have you had contact with anyone from an Ebola affected area: No Do you have a fever: No - Review of Systems Constitutional: Loss of Appetite EENT: reports: See HPI Respiratory: reports: No Symptoms reported Cardiac: reports: No Symptoms Reported GI: reports: Constipated, Nausea, Poor Appetite : reports: No Symptoms Reported Musculoskeletal: reports: See HPI, Back Pain Integumentary: reports: See HPI Neuro: reports: See HPI, Headache Endocrine: reports: No Symptoms Reported Psychiatric: reports: Depressed, Disorientated Patient History - Patient Medical History Hx Anemia: No Hx Asthma: Yes (Not on medication) Hx Chronic Obstructive Pulmonary Disease (COPD): No Hx Cancer: No Hx Cardiac Disorders: No Hx Congestive Heart Failure: No Hx Hypertension: Yes (Not on medication) Hx Hypercholesterolemia: No Hx Pacemaker: No Hx Seizures: Yes (Not on medication) Hx Dementia: No Hx Diabetes: No Hx Gastrointestinal Disorders: No Hx Liver Disease: No Hx Genitourinary Disorders: No Hx Sexually Transmitted Disorders: No Hx Renal Disease (ESRD): No Hx Thyroid Disease: No Hx Human Immunodeficiency Virus (HIV): No (Negative) Hx Hepatitis C: No Hx Depression: Yes (Not on medication) Hx Suicide Attempt: Yes (Denies suicidal ideation at this time) Hx Bipolar Disorder: No Hx Schizophrenia: No - Patient Surgical History Past Surgical History: Yes Hx Neurologic Surgery: No Hx Cataract Extraction: No Hx Cardiac Surgery: No Hx Lung Surgery: No Hx Breast Surgery: No Hx Breast Biopsy: No Hx Abdominal Surgery: No Hx Appendectomy: No Hx Cholecystectomy: No Hx Genitourinary Surgery: No Hx Section: No Hx Orthopedic Surgery: No Anesthesia Reaction: No - PPD History Date: 01/11/19 - Smoking Cessation Smoking history: Smoker current status UNK Have you smoked in the past 12 months: No Aproximately how many cigarettes per day: 20 Hx Chewing Tobacco Use: No - Substances abused Heroin Substance route: Injection Frequency: Daily Amount used: 2-10BAGS Age of first use: 24 Date of last use: 02/27/19 Benzodiazepine (Klonopin) Other (specify): 2MGS Substance route: Oral Frequency: Daily Amount used: 2-3TABS Age of first use: 24 Date of last use: 02/27/19 Admission Physical Exam BHS - Vital Signs Vital Signs: Vital Signs - 24 hr 02/27/19 09:35 Temperature 97.6 F Pulse Rate 75 Respiratory 18 Rate Blood Pressure 128/74 - Physical General Appearance: Yes: Intoxicated HEENTM: Yes: EOMI, Hearing grossly Normal, Normocephalic, Normal Voice, Nasal Congestion Respiratory: Yes: Chest Non-Tender, Lungs Clear, Normal Breath Sounds, No Respiratory Distress, No Accessory Muscle Use Neck: Yes: No masses,lesions,Nodules, Trachea in good position Cardiology: Yes: Regular Rhythm, Regular Rate, S1, S2 Abdominal: Yes: Normal Bowel Sounds, Non Tender, Soft Musculoskeletal: Yes: full range of Motion, Gait Steady Extremities: Yes: Normal Range of Motion, Non-Tender Neurological: Yes: Motor Strength 5/5, Disoriented, Depressed Affect Integumentary: Yes: Warm, [place] - Diagnostic (1) Cocaine dependence Current Visit: Yes Status: Chronic Qualifiers: Substance use status: uncomplicated Qualified Code(s): F14.20 - Cocaine dependence, uncomplicated (2) Nicotine dependence Current Visit: Yes Status: Chronic Qualifiers: Nicotine product type: cigarettes (3) Sedative, hypnotic or anxiolytic abuse with intoxication, uncomplicated Current Visit: Yes Status: Chronic (4) Opioid intoxication Current Visit: Yes Status: Acute Qualifiers: Complication of substance-induced condition: uncomplicated Qualified Code(s ): F11.920 - Opioid use, unspecified with intoxication, uncomplicated Breathalyzer - Breathalyzer Breathalyzer: 0 Urine Drug Screen - Test Device Lot number: [id number] Expiration date: 09/10/20 - Control Is test valid?: Yes - Results Drug screen NEGATIVE: No Urine drug screen results: THC-Marijuana, PERLA-Cocaine, MOP-Opiates, BZO- Benzodiazepines Inpatient Rehab Admission - Rehab Decision to Admit Inpatient rehab admission?: No
[2019-02-27] MEDS ORDERED: ACETAMINOPHEN 325 MG TABLET (FP) PO PRN ×2 (11:29)
[2019-02-27] MEDS ORDERED: MAG HYDROX/AL HYDROX/SIMETH 30 ML UNIT-DOSE CUP PO PRN (11:29)
[2019-02-27] MEDS ORDERED: MAGNESIUM CITRATE 300 ML BOTTLE PO PRN (11:29)
[2019-02-27] MEDS ORDERED: MELATONIN 5 MG TABLETS PO PRN (11:29)
[2019-02-27] MEDS ORDERED: MENTHOL/PHENOL 1 EACH UD MM PRN (11:29)
[2019-02-27] MEDS ORDERED: BISMUTH SUBSALICYLATE 262 MG/15 ML BTL PO PRN (11:29)
[2019-02-27] MEDS ORDERED: IBUPROFEN 400 MG TABLET (FP) PO PRN (11:29)
[2019-02-27] MEDS ORDERED: MAGNESIUM HYDROX 2400MG/30ML ORAL SUSPENSION 30 ML CUP PO PRN (11:29)
[2019-02-27] MEDS ORDERED: cloNIDine HCL 0.1 MG TABLET PO PRN (11:32)
[2019-02-27] MEDS: diazePAM 5 MG TABLET PO SCH ×2 (13:04→21:59)
[2019-02-27] MEDS: BACITRACIN/POLYMYXIN B SULFATE 15 GM TUBE TP SCH ×2 (13:04→21:59)
[2019-02-27 14:34] LABS: HEMATOCRIT 40.1 % (35.4-49); HEMOGLOBIN 13.5 GM/dL (11.7-16.9); MCH 26.4 pg (25.7-33.7); MCHC 33.7 g/dl (32.0-35.9); MEAN CELL VOLUME 78.4 fl (80-96); MEAN PLT VOLUME 9.2 fl (7.5-11.1); PLATELET COUNT 193 K/MM3 (134-434); RBC 5.11 M/mm3 (4.00-5.60); WHITE BLOOD COUNT 6.8 K/mm3 (4.0-10.0)
[2019-02-27 15:07] LABS: ALBUMIN 4.2 g/dl (3.4-5.0); BILIRUBIN,TOTAL 0.5 mg/dL (0.2-1); CALCIUM 8.7 mg/dL (8.5-10.1); CREATININE 0.8 mg/dL (0.55-1.3); POTASSIUM 4.2 mmol/L (3.5-5.1)
[2019-02-27] MEDS: diazePAM 5 MG TABLET PO PRN (19:24)
[2019-02-27] MEDS: THIAMINE HCL 100 MG TABLET (FP) PO SCH (21:59)
[2019-02-27] MEDS ORDERED: METHADONE HCL 10 MG TABLET (FOR DETOX USE ONLY) PO ONE (22:00)
[2019-02-28] MEDS: diazePAM 5 MG TABLET PO SCH ×3 (06:23→22:57)
[2019-02-28] MEDS: hydrOXYzine PAMOATE 25 MG CAPSULE (FP) PO PRN ×2 (06:24→22:58)
[2019-02-28] MEDS: METHOCARBAMOL 500 MG TABLET PO PRN (06:24)
[2019-02-28] MEDS ORDERED: METHADONE HCL 5 MG TABLET (FOR DETOX USE ONLY) ONE (09:06)
[2019-02-28] MEDS ORDERED: METHADONE HCL 10 MG TABLET (FOR DETOX USE ONLY) ONE (09:06)
[2019-02-28] MEDS ORDERED: METHADONE (DETOX) 20 MG, METHADONE (DETOX) 5 MG PO ONE (10:00)
[2019-02-28] MEDS: BACITRACIN/POLYMYXIN B SULFATE 15 GM TUBE TP SCH ×2 (10:36→22:57)
[2019-02-28] MEDS: PRENATAL VITAMINS W/ FOLIC ACID TABLET (FP) PO SCH (10:36)
--- NOTE | 2019-02-28 17:06 | PN ---
S CIWA - CIWA Score Nausea/Vomitin-No Nausea/No Vomiting Muscle Tremors: None Anxiety: 3 Agitation: 1-Slight > Activity Paroxysmal Sweats: No Perspiration Orientation: 0-Oriented Tacttile Disturbances: 0-None Auditory Disturbances: 0-None Visual Disturbances: 2-Mild Sensitivity Headache: 0-None Present CIWA-Ar Total Score: 6 BHS COWS - Scale Resting Pulse: 0= [place] 80 or Below Sweatin= Chills/Flushing Restless Observation: 1= Difficult to Sit Still Pupil Size: 0= Normal to Room Light Bone or Joint Aches: 0= None Runny Nose/ Eye Tearin= None GI Upset > 30mins: 0= None Tremor Observation of Outstretched Hands: 0= None Yawning Observation: 1= 1-2x During Session Anxiety or Irritability: 2=Irritable/Anxious Goose Flesh Skin: 3=[place] COWS Score: 8 BHS Progress Note (SOAP) Subjective: Fatigue, Body Aches, Anxious. Objective: PATIENT A & O X 3, OBSERVED AMBULATING ON DETOX UNIT UNASSISTED. IN NO ACUTE DISTRESS. 02/28/19 17:05 Vital Signs Temperature 97.7 F 02/28/19 15:36 Pulse Rate 66 02/28/19 15:36 Respiratory Rate 18 02/28/19 15:36 Blood Pressure 159/92 02/28/19 15:36 O2 Sat by Pulse Oximetry (%) Laboratory Tests 02/27/19 02/27/19 02/27/19 11:50 11:50 11:50 WBC 6.8 RBC 5.11 Hgb 13.5 Hct 40.1 MCV 78.4 L MCH 26.4 MCHC 33.7 RDW 15.0 Plt Count 193 MPV 9.2 Sodium 137 Potassium 4.2 Chloride 105 Carbon Dioxide 29 Anion Gap 3 L BUN 17.0 Creatinine 0.8 Est GFR (CKD-EPI)AfAm 135.08 Est GFR (CKD-EPI)NonAf 116.55 Random Glucose 98 Calcium 8.7 Total Bilirubin 0.5 AST 69 H ALT 145 H Alkaline Phosphatase 96 Total Protein 7.0 Albumin 4.2 RPR Titer Nonreactive LABS NOTED. Assessment: 02/28/19 17:05 WITHDRAWAL SYMPTOMS. ELEVATED AST LEVEL. ELEVATED ALT LEVEL. 02/28/19 17:05 Plan: CONTINUE DETOX.
[2019-02-28] MEDS: diazePAM 5 MG TABLET PO PRN (17:28)
[2019-02-28] MEDS: THIAMINE HCL 100 MG TABLET (FP) PO SCH (22:57)
[2019-03-01] MEDS: diazePAM 5 MG TABLET PO SCH ×2 (06:47→17:28)
[2019-03-01] MEDS: METHOCARBAMOL 500 MG TABLET PO PRN (06:56)
[2019-03-01] MEDS ORDERED: METHADONE HCL 10 MG TABLET (FOR DETOX USE ONLY) PO ONE (10:00)
[2019-03-01] MEDS: PRENATAL VITAMINS W/ FOLIC ACID TABLET (FP) PO SCH (10:06)
[2019-03-01] MEDS: BACITRACIN/POLYMYXIN B SULFATE 15 GM TUBE TP SCH (10:06)
[2019-03-01] MEDS: diazePAM 5 MG TABLET PO PRN (10:08)
[2019-03-01 14:22] VITALS: BP 129/59; PULSE 81; TEMP 98.1
--- NOTE | 2019-03-01 14:23 | PN ---
S CIWA - CIWA Score Nausea/Vomitin-No Nausea/No Vomiting Muscle Tremors: 2 Anxiety: 1-Mildly Anxious Agitation: 2 Paroxysmal Sweats: 1-Minimal Palms Moist Orientation: 0-Oriented Tacttile Disturbances: 0-None Auditory Disturbances: 0-None Visual Disturbances: 0-None Headache: 0-None Present CIWA-Ar Total Score: 6 BHS COWS - Scale Resting Pulse: 0= [place] 80 or Below Sweatin= Chills/Flushing Restless Observation: 1= Difficult to Sit Still Pupil Size: 0= Normal to Room Light Bone or Joint Aches: 1= Mild Discomfort Runny Nose/ Eye Tearin= None GI Upset > 30mins: 0= None Tremor Observation of Outstretched Hands: 2= Slight Tremor Visible Yawning Observation: 0= None Anxiety or Irritability: 1=Feels Anxious/Irritable Goose Flesh Skin: 0=Smooth Skin COWS Score: 6 S Progress Note (SOAP) Subjective: agitation restless body aches sweats Objective: 03/01/19 14:22 Vital Signs Temperature 98.1 F 03/01/19 14:19 Pulse Rate 81 03/01/19 14:19 Respiratory Rate 16 03/01/19 14:19 Blood Pressure 129/59 L 03/01/19 14:19 O2 Sat by Pulse Oximetry (%) Laboratory Tests 02/27/19 02/27/19 02/27/19 11:50 11:50 11:50 WBC 6.8 RBC 5.11 Hgb 13.5 Hct 40.1 MCV 78.4 L MCH 26.4 MCHC 33.7 RDW 15.0 Plt Count 193 MPV 9.2 Sodium 137 Potassium 4.2 Chloride 105 Carbon Dioxide 29 Anion Gap 3 L BUN 17.0 Creatinine 0.8 Est GFR (CKD-EPI)AfAm 135.08 Est GFR (CKD-EPI)NonAf 116.55 Random Glucose 98 Calcium 8.7 Total Bilirubin 0.5 AST 69 H ALT 145 H Alkaline Phosphatase 96 Total Protein 7.0 Albumin 4.2 RPR Titer Nonreactive aaox3 ambulating no acute distress liver enzymes noted mildly high; encourage water intake Assessment: 03/01/19 14:22 withdrawals Plan: continue detox
--- NOTE | 2019-03-01 17:17 | DS ---
[facility] Detox Discharge Summary Admission Date: 02/27/19 Discharge Date: 03/01/19 - History Present History: Opioid Dependence (pt reports he wants to leave , states planning to meet up with his girlfriend and stay at his mother's , will consider outpt program. Denies Si / [place] , states " I just want to leave , I am not going to hurt myself " . Pt is adamant about leaving despite encouragement to stay and complete detox protocol. Discussed medication regimen, pt not interested in further medication management and insists " I want to leave " . Risks of leaving AMA discussed at length , pt verbalizes understanding and desire to proceed with discharge .) - Physical Exam Results Vital Signs: Vital Signs Temperature 98.1 F 03/01/19 14:19 Pulse Rate 81 03/01/19 14:19 Respiratory Rate 16 03/01/19 14:19 Blood Pressure 129/59 L 03/01/19 14:19 O2 Sat by Pulse Oximetry (%) - Medication Discharge Medications: Ambulatory Orders Albuterol Sulfate Inhaler - [Ventolin HFA Inhaler -] 1 - 2 inh PO Q4H PRN #1 inhaler 07/27/18 Amlodipine Besylate [Norvasc -] 5 mg PO DAILY 01/22/19 Lisinopril/Hydrochlorothiazide [Lisinopril-Hctz 10-12.5 mg Tab] 1 each PO DAILY 01/22/19 - Diagnosis (1) Cocaine dependence Current Visit: Yes Status: Chronic Qualifiers: Substance use status: uncomplicated Qualified Code(s): F14.20 - Cocaine dependence, uncomplicated (2) Nicotine dependence Current Visit: Yes Status: Chronic Qualifiers: Nicotine product type: cigarettes (3) Sedative, hypnotic or anxiolytic abuse with intoxication, uncomplicated Current Visit: Yes Status: Chronic (4) Opioid intoxication Current Visit: Yes Status: Acute Qualifiers: Complication of substance-induced condition: uncomplicated Qualified Code(s ): F11.920 - Opioid use, unspecified with intoxication, uncomplicated - AMA Did Patient Leave Against Medical Advice: Yes
[2019-03-02] MEDS ORDERED: diazePAM 5 MG TABLET PO ONE (06:00)
[2019-03-02] MEDS ORDERED: METHADONE (DETOX) 10 MG, METHADONE (DETOX) 5 MG PO ONE (10:00)
[2019-03-03] MEDS ORDERED: METHADONE HCL 10 MG TABLET (FOR DETOX USE ONLY) PO ONE (10:00)
[2019-03-04] MEDS ORDERED: METHADONE HCL 5 MG TABLET (FOR DETOX USE ONLY) PO ONE (06:00)
== END 2019-03-01 17:33 | disposition left against medical advice (07) | DRG 770 ==
LOC: YASAS 09:26 → Y6N 11:46
PROVIDERS: ADMIT Allergy & Immunology; ATTEND Allergy & Immunology
PROC: HZ2ZZZZ Detoxification Services for Substance Abuse Treatment (ICD-10-PCS; principal; 2019-02-27)
DX: F11.23 Opioid dependence with withdrawal (principal); F11.220 Opioid dependence with intoxication, uncomplicated; F13.230 Sedative, hypnotic or anxiolytic dependence with withdrawal, uncomplicated; F13.220 Sedative, hypnotic or anxiolytic dependence with intoxication, uncomplicated; F14.20 Cocaine dependence, uncomplicated; F17.210 Nicotine dependence, cigarettes, uncomplicated; I10 Essential (primary) hypertension; J45.909 Unspecified asthma, uncomplicated; R94.5 Abnormal results of liver function studies; R74.0 Nonspecific elevation of levels of transaminase and lactic acid dehydrogenase [LDH]; Z86.59 Personal history of other mental and behavioral disorders; Z86.69 Personal history of other diseases of the nervous system and sense organs; Z91.5 Personal history of self-harm
CPT/HCPCS: 36415; 80053; 85027; 86593; J0735

== ENCOUNTER 2022-08-22 18:11 | Inpatient (IN) | payer OTHER ==
[2022-08-22 20:00] VITALS: BMI 21.8
[2022-08-22] MEDS ORDERED: IBUPROFEN 600 MG TABLET (FP) PO PRN (21:04)
[2022-08-22] MEDS ORDERED: DICYCLOMINE HCL 10 MG CAPSULE PO PRN (21:04)
[2022-08-22] MEDS ORDERED: LOPERAMIDE HCL 2 MG CAPSULE PO PRN (21:04)
[2022-08-22] MEDS ORDERED: ACETAMINOPHEN 325 MG TABLET (FP) PO PRN (21:04)
[2022-08-22] MEDS ORDERED: NALOXONE HCL (KLOXXADO) 8 MG SPRAY NS PRN (21:04)
[2022-08-22] MEDS ORDERED: NALOXONE HCL 0.4 MG/ML VIAL IM PRN (21:04)
[2022-08-22] MEDS ORDERED: NICOTINE POLACRILEX 2 MG GUM BUC PRN (21:04)
[2022-08-22] MEDS ORDERED: hydrOXYzine PAMOATE 25 MG CAPSULE (FP) PO PRN (21:04)
[2022-08-22] MEDS ORDERED: POLYETHYLENE GLYCOL (HEALTHYLAX) 3350 17 GM PACKET PO PRN (21:04)
[2022-08-22] MEDS ORDERED: MAGNESIUM HYDROX 2400MG/30ML ORAL SUSPENSION 30 ML CUP PO PRN (21:04)
[2022-08-22] MEDS ORDERED: IBUPROFEN 400 MG TABLET (FP) PO PRN (21:04)
[2022-08-22] MEDS ORDERED: guaiFENesin 600 MG TABLET.ER (FP) PO PRN (21:04)
[2022-08-22] MEDS ORDERED: BENZOCAINE/MENTHOL (CHLORASEPTIC ) LOZENGE MM PRN (21:04)
[2022-08-22] MEDS ORDERED: ALBUTEROL SO4 HFA INHALER IH PRN (21:04)
[2022-08-22] MEDS ORDERED: BISMUTH SUBSALICYLATE 524 MG/30 ML PO PRN (21:04)
[2022-08-22] MEDS ORDERED: ONDANSETRON *ODT* 4 MG TABLET SL PRN (21:04)
[2022-08-22] MEDS ORDERED: MAG HYDROX/AL HYDROX/SIMETH 30 ML UNIT-DOSE CUP PO PRN (21:04)
[2022-08-22] MEDS ORDERED: BENZONATATE 200 MG CAPSULE PO PRN (21:04)
[2022-08-23] MEDS: MELATONIN 5 MG TABLETS PO SCH ×2 (00:16→22:30)
[2022-08-23] MEDS: THIAMINE HCL 100 MG TABLET (FP) PO SCH ×2 (00:17→22:30)
[2022-08-23] MEDS ORDERED: methaDONE HCL 10 MG TABLET (FOR DETOX USE ONLY) PO ONE (09:27)
[2022-08-23] MEDS ORDERED: cloNIDine HCL 0.1 MG TABLET PO PRN (09:27)
[2022-08-23] MEDS ORDERED: PATIENT'S OWN MEDICATION (NON-FORMULARY) (Lisinopril/Hydrochlorothiazide [Lisinopril-Hctz PO SCH (10:00)
[2022-08-23] MEDS: PRENATAL VITAMINS W/ FOLIC ACID TABLET (FP) PO SCH (10:28)
[2022-08-23] MEDS: NICOTINE 21 MG/24 HOURS TOPICAL PATCH TD SCH (10:29)
[2022-08-23] MEDS: METHOCARBAMOL 500 MG TABLET PO PRN (10:29)
[2022-08-23] MEDS: HYDROCHLOROTHIAZIDE 12.5 MG CAPSULE (FP) PO SCH (10:29)
[2022-08-23] MEDS: amLODIPine BESYLATE 5 MG TABLET (FP) PO SCH (10:29)
[2022-08-23] MEDS: LISINOPRIL 10 MG TABLET PO SCH (10:29)
[2022-08-23 10:58] LABS: HEMATOCRIT 31.5 % (35.4-49); HEMOGLOBIN 9.9 GM/dL (11.7-16.9); MCH 21.2 pg (25.7-33.7); MCHC 31.4 g/dl (32.0-35.9); MEAN CELL VOLUME 67.5 fl (80-96); MEAN PLT VOLUME 8.5 fl (7.5-11.1); PLATELET COUNT 313 10^3/uL (134-434); RBC 4.67 M/mm3 (4.00-5.60); WHITE BLOOD COUNT 4.6 K/mm3 (4.0-10.0)
[2022-08-23 11:55] LABS: POTASSIUM 4.1 mmol/L (3.5-5.1)
[2022-08-23 12:06] LABS: BLOOD UREA NITROGEN 14.3 mg/dL (7-18); CALCIUM 8.7 mg/dL (8.5-10.1)
[2022-08-23 12:07] LABS: ALBUMIN 2.7 g/dl (3.4-5.0)
[2022-08-23 12:09] LABS: CREATININE 0.6 mg/dL (0.55-1.3)
[2022-08-23 12:10] LABS: BILIRUBIN,TOTAL 0.3 mg/dL (0.2-1)
[2022-08-23 12:11] LABS: TOT PROT 6.1 g/dl (6.4-8.2)
[2022-08-23] MEDS: diazePAM 5 MG TABLET PO PRN (22:30)
[2022-08-24] MEDS: LISINOPRIL 10 MG TABLET PO SCH (10:24)
[2022-08-24] MEDS: PRENATAL VITAMINS W/ FOLIC ACID TABLET (FP) PO SCH (10:24)
[2022-08-24] MEDS: amLODIPine BESYLATE 5 MG TABLET (FP) PO SCH (10:24)
[2022-08-24] MEDS: HYDROCHLOROTHIAZIDE 12.5 MG CAPSULE (FP) PO SCH (10:24)
[2022-08-24] MEDS: diazePAM 5 MG TABLET PO PRN (10:30)
[2022-08-24] MEDS: NICOTINE 21 MG/24 HOURS TOPICAL PATCH TD SCH (11:41)
[2022-08-24] MEDS: MELATONIN 5 MG TABLETS PO SCH (22:27)
[2022-08-24] MEDS: THIAMINE HCL 100 MG TABLET (FP) PO SCH (22:27)
[2022-08-25] MEDS ORDERED: methaDONE HCL 10 MG TABLET (FOR DETOX USE ONLY) PO ONE (10:00)
[2022-08-25] MEDS: PRENATAL VITAMINS W/ FOLIC ACID TABLET (FP) PO SCH (10:16)
[2022-08-25] MEDS: amLODIPine BESYLATE 5 MG TABLET (FP) PO SCH (10:16)
[2022-08-25] MEDS: diazePAM 5 MG TABLET PO PRN ×2 (10:16→22:30)
[2022-08-25] MEDS: HYDROCHLOROTHIAZIDE 12.5 MG CAPSULE (FP) PO SCH (10:16)
[2022-08-25] MEDS: LISINOPRIL 10 MG TABLET PO SCH (10:17)
[2022-08-25] MEDS: NICOTINE 21 MG/24 HOURS TOPICAL PATCH TD SCH (10:17)
[2022-08-25] MEDS: THIAMINE HCL 100 MG TABLET (FP) PO SCH (22:29)
[2022-08-25] MEDS: MELATONIN 5 MG TABLETS PO SCH (22:29)
[2022-08-26 09:14] VITALS: PULSE 101; RESP 20
[2022-08-26] MEDS: METHOCARBAMOL 500 MG TABLET PO PRN (09:38)
[2022-08-26] MEDS: HYDROCHLOROTHIAZIDE 12.5 MG CAPSULE (FP) PO SCH (09:38)
[2022-08-26] MEDS: LISINOPRIL 10 MG TABLET PO SCH (09:38)
[2022-08-26] MEDS: amLODIPine BESYLATE 5 MG TABLET (FP) PO SCH (09:38)
[2022-08-26] MEDS: NICOTINE 21 MG/24 HOURS TOPICAL PATCH TD SCH (09:39)
[2022-08-26] MEDS: PRENATAL VITAMINS W/ FOLIC ACID TABLET (FP) PO SCH (09:40)
[2022-08-26 13:10] VITALS: BP 125/74; TEMP 97.4
[2022-08-26] MEDS ORDERED: MIRTAZAPINE 15 MG TABLET (FP) PO SCH (22:00)
[2022-08-27] MEDS ORDERED: methaDONE HCL 10 MG TABLET (FOR DETOX USE ONLY) PO ONE (10:00)
== END 2022-08-26 16:10 | disposition left against medical advice (07) | DRG 770 ==
LOC: YASAS 18:11 → Y6N 23:15
PROVIDERS: ADMIT Allergy & Immunology; ATTEND Surgery
PROC: HZ2ZZZZ Detoxification Services for Substance Abuse Treatment (ICD-10-PCS; principal; 2022-08-22)
DX: F11.23 Opioid dependence with withdrawal (principal); F14.20 Cocaine dependence, uncomplicated; F12.20 Cannabis dependence, uncomplicated; F17.213 Nicotine dependence, cigarettes, with withdrawal; F19.282 Other psychoactive substance dependence with psychoactive substance-induced sleep disorder; G62.9 Polyneuropathy, unspecified; I10 Essential (primary) hypertension; J45.20 Mild intermittent asthma, uncomplicated; M54.50 Low back pain, unspecified; G89.29 Other chronic pain; B18.2 Chronic viral hepatitis C; Z28.310 Unvaccinated for COVID-19; Z28.9 Immunization not carried out for unspecified reason; Z59.00 Homelessness unspecified; Z56.0 Unemployment, unspecified
CPT/HCPCS: 36415; 80053; 85027; 86780; 87635; 93005; 93010